=== PATIENT | male | born 1975 | race African-American/Black ===

== ENCOUNTER 2021-09-09 10:50 | Emergency (ER) | payer MEDICAID | END 2021-09-09 11:28 | disposition left against medical advice (07) | LOC: ER 10:50 | DX: Z53.21 Procedure and treatment not carried out due to patient leaving prior to being seen by health care provider (principal) ==

== ENCOUNTER 2025-08-25 22:24 | Emergency (ER) | payer SELFPAY ==
[~2025-08-25] VITALS: Ht 170.2 cm; Wt 91.0 kg
[2025-08-25 22:31] VITALS: O2SAT 98
[2025-08-25] MEDS ORDERED: LISI-186 MT (23:21)
[2025-08-25] MEDS ORDERED: ATOR20TA65 MT (23:21)
[2025-08-25] MEDS: ATORVASTATIN CALCIUM 20MG TABLET PO SCH ×2 (23:55→23:59)
[2025-08-25] MEDS: LISINOPRIL 5MG TABLET PO ONE (23:56)
[2025-08-25 23:59] VITALS: BP 178/131; PULSE 89; RESP 16; TEMP 36.8; O2SAT 98
[2025-08-26] MEDS ORDERED: ATORVASTATIN CALCIUM 20MG TABLET PO SCH (21:00)
== END 2025-08-25 23:58 | disposition home or self-care (01) ==
LOC: ER 22:24
DX: I10 Essential (primary) hypertension (principal); Z79.899 Other long term (current) drug therapy
CPT/HCPCS: 93005; 99283